=== PATIENT | male | born 1995 | race Caucasian/White ===

== ENCOUNTER 2021-10-17 16:03 | Emergency (ER) | payer SELFPAY ==
[~2021-10-17] VITALS: Ht 172.7 cm; Wt 77.0 kg
[2021-10-17] MEDS ORDERED: KETOROLAC 30MG/ML VIAL IV STA (16:46)
[2021-10-17] MEDS ORDERED: SODIUM CHLORIDE 0.9% 1,000 ML IV ONE (17:00)
[2021-10-17 17:07] LABS: CLARITY URINE CLEAR (CLEAR); COLOR URINE YELLOW (YELLOW); KETONES URINE NEGATIVE (NEGATIVE); LEUKOCYTE ESTERASE URINE NEGATIVE (NEGATIVE); NITRITE URINE NEGATIVE (NEGATIVE); OCCULT BLOOD URINE 1+ (NEGATIVE); PH URINE 5.5 (4.5-8.0); PROTEIN URINE NEGATIVE (NEGATIVE); SPECIFIC GRAVITY URINE 1.008 (1.005-1.030); UROBILINOGEN URINE 0.2 E.U./dL (0.2-1.0)
[2021-10-17 17:08] LABS: BASOPHILS % 0.6 % (0.0-2.0); CHLORIDE 108 mEq/L (98-107); EOSINOPHILS % 1.1 % (0.0-5.0); HEMATOCRIT. 41.5 % (42.0-52.0); HEMOGLOBIN. 14.2 g/dL (14.0-18.0); LYMPHOCYTES % 26.3 % (20.0-50.0); MEAN CORPUSCULAR HEMOGLOBIN 28.9 pg (28.0-32.0); MEAN CORPUSCULAR VOLUME 84.3 fL (80.0-94.0); MEAN PLATELET VOLUME 8.7 fl (7.4-10.4); MONOCYTES % 5.7 % (2.0-8.0); NEUTROPHILS % 66.3 % (40.0-76.0); PLATELET 211 x1000/uL (130-400); RED BLOOD CELL COUNT 4.93 mill/uL (4.7-6.1); RED CELL DISTRIBUTION WIDTH 12.7 % (11.6-14.6)
[2021-10-17 17:28] LABS: *AMPHETAMINES SCREEN URINE NEGATIVE (NEGATIVE); *BARBITURATES SCREEN URINE NEGATIVE (NEGATIVE); *BENZODIAZEPINES SCREEN URINE NEGATIVE (NEGATIVE); *COCAINE SCREEN URINE NEGATIVE (NEGATIVE); METHADONE URINE SCREEN NEGATIVE (NEGATIVE); OPIATES URINE SCREEN NEGATIVE (NEGATIVE)
[2021-10-17 17:30] LABS: CANNABINOID URINE SCREEN NEGATIVE (NEGATIVE); PHENCYCLIDINE URINE SCREEN NEGATIVE (NEGATIVE)
[2021-10-17] MEDS ORDERED: MORPHINE SULFATE 4 MG/ML CPJ (NOT FOR IM USE) IV ONE (21:00)
[2021-10-17] MEDS ORDERED: ACET650T37 MT (22:15)
[2021-10-17] MEDS ORDERED: IBUP-2028 MT (22:16)
[2021-10-17] MEDS ORDERED: KETOROLAC 15MG/ML VIAL IV ONE (23:15)
[2021-10-17 23:49] VITALS: BP 110/68
[2021-10-22 04:10] LABS: NEISSERIA GONORRHOEAE NAA Negative (Negative)
== END 2021-10-17 23:52 | disposition home or self-care (01) ==
LOC: ER 16:38
DX: N13.0 Hydronephrosis with ureteropelvic junction obstruction (principal); N13.2 Hydronephrosis with renal and ureteral calculous obstruction; R91.1 Solitary pulmonary nodule; N50.811 Right testicular pain; N50.812 Left testicular pain
CPT/HCPCS: 36415; 74176; 76870; 80053; 80305; 81003; 83605; 83690; 85025; 87086; 87491; 87591; 93976; 96361; 96374; 96375; 96376; 99285; J1885; J2270; J7030